=== PATIENT | male | born 1975 | race Caucasian/White ===

== ENCOUNTER 2017-11-19 01:21 | Emergency (ER) | payer BC ==
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
[2017-11-19] MEDS ORDERED: HYDROMORPHONE HCL INJ/PF 2 MG/ML AMPULE IM ONE (02:05)
[2017-11-19] MEDS ORDERED: PREDNISONE 20 MG TABLET PO ONE (02:05)
[2017-11-19] MEDS ORDERED: KETOROLAC TROMETHAMINE 60 MG/2 ML SDV IM ONE (02:05)
--- NOTE | 2017-11-19 03:11 | RADIOLOGY REPORT (SQ) ---
EXAM DESCRIPTION: SHOULDER RIGHT 2 OR MORE VIEWS CLINICAL HISTORY: pain COMPARISON: None. FINDINGS: 3 views of the right shoulder. No acute fracture or dislocation. Normal osseous mineralization. No fracture of the visualized right ribs. No right-sided pneumothorax identified. IMPRESSION: 1. No acute fracture or dislocation.
--- NOTE | 2017-11-19 03:12 | RADIOLOGY REPORT (SQ) ---
EXAM DESCRIPTION: HUMERUS RIGHT CLINICAL HISTORY: pain COMPARISON: None. FINDINGS: 2 views of the right humerus. No acute fracture or dislocation. Normal osseous mineralization. IMPRESSION: 1. No acute fracture or dislocation.
[2017-11-19] MEDS ORDERED: DIAZEPAM 5 MG TABLET PO ONE (03:47)
[2017-11-19 04:17] VITALS: BP 167/100
== END 2017-11-19 04:17 | disposition home or self-care (01) ==
LOC: ER 01:21
DX: M62.838 Other muscle spasm (principal); M54.12 Radiculopathy, cervical region; M79.601 Pain in right arm; M25.511 Pain in right shoulder; E11.9 Type 2 diabetes mellitus without complications; I10 Essential (primary) hypertension
CPT/HCPCS: 99283; 96372; 73060; 73030; J1885; J1170; J7512

== ENCOUNTER 2017-11-21 21:59 | Emergency (ER) | payer BC, OTHER ==
[2017-11-21 22:12] VITALS: BP 177/105
[2017-11-21] MEDS ORDERED: MORPHINE SULFATE IR 15 MG TABLET PO ONE (22:36)
[2017-11-21] MEDS ORDERED: KETOROLAC TROMETHAMINE INJ/PF 30 MG/1 ML SDV IM ONE (22:36)
--- NOTE | 2017-11-21 22:41 | ER Document Report ---
HPI - HPI Pain Level: 5 Notes: Patient is a 42-year-old male with a history of well-controlled type 2 diabetes , hypertension who presents to the ED complaining of continued neck pain that radiates down into his right arm. Patient states that he has pain and tingling that shoots down into his right arm. Patient was evaluated 2 days ago and was given Valium and [place]. Patient states that the medicines did not really help that well aside from the steroid medication. Patient states that he is not here looking for narcotics, but would like something to help with the inflammation swelling as Motrin has not been helping him. 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 Patient has a neurosurgical consult scheduled for December 03. Patient states that he has performed multiple warm showers today, ice throughout the day, TENS unit, and chiropractor visit without significant improvement. Patient states that he is up every hour and a half because of the intermittent pain that he has been having. Patient states that certain movements make his pain worse. Patient states that the pain has otherwise remained unchanged from his visit a couple days ago. Patient states that he does check his sugars regularly and they are very well controlled. Patient states that he has had steroids in the past without any difficulties with a sugar. No other concerns or complaints. Denies any surgeries or procedures to his back. Denies any smoking or IV drug use. Denies any previous history of spinal abscess or other immunocompromised medical conditions. Denies any headache, fever, head injury, URI, sore throat, chest pain, palpitations, syncope, cough, shortness of breath, wheeze, dyspnea, abdominal pain, nausea/ vomiting/diarrhea, urinary retention, dysuria, hematuria, loss of control of bowel or bladder, saddle anesthesia, or rash. - ROS Systems Reviewed and Negative: Yes All other systems reviewed and negative - REPRODUCTIVE Reproductive: DENIES: : Past Medical History - Social History Smoking Status: Never Smoker Family History: Reviewed & Not Pertinent Endocrine Medical History: Reports: Hx Diabetes Mellitus Type 2 Renal/ Medical History: Denies: Hx Peritoneal Dialysis Musculoskeltal Medical History: Reports Hx Arthritis, Reports Hx Musculoskeletal Deformity, Reports Hx Musculoskeletal Trauma Past Surgical History: Reports: Hx Orthopedic Surgery - x3 right ankle - Immunizations Hx Diphtheria, Pertussis, Tetanus Vaccination: Yes - unk Vertical Provider Document - CONSTITUTIONAL Agree With Documented VS: Yes Notes: PHYSICAL EXAMINATION: accompanied by female nurse GENERAL: Well-appearing, well-nourished and in no acute distress. A&Ox4. Answers questions appropriately. NECK: Normal range of motion, supple without lymphadenopathy. No rigidity. No midline tenderness. Spurling negative. + tenderness and mild spasm to the rt c- paraspinal mm & into the rt trap mm. LUNGS: Breath sounds clear to auscultation bilaterally and equal. No wheezes rales or rhonchi. HEART: Regular rate and rhythm without murmurs, rubs, gallops. Musculoskeletal: UE's b/l: No obvious atrophy of the RUE is noted. FROM to passive/active. Strength 5+/5. No deficits noted. No bony tenderness of extremities. N/V intact distal. Back: FROM to passive/active. Strength 5+/5. No vertebral point tenderness, stepoffs, or deformities. No other bony tenderness, erythema, swelling, or ecchymosis. No foot drop Extremities: No cyanosis, clubbing, or edema b/l. Peripheral pulses 2+. Capillary refill less than 2 seconds. NEUROLOGICAL: Normal speech, normal gait. Normal sensory, motor exams. Reflexes 2+ b/l. PSYCH: Normal mood, normal affect. SKIN: Warm, Dry, normal turgor, no rashes or lesions noted. - INFECTION CONTROL TRAVEL OUTSIDE OF THE [place] IN LAST 30 DAYS: No Course - Re-evaluation Re-evalutation: 11/21/17 22:41 Patient is an afebrile, well-hydrated, 42-year-old male who presents to the ED with cervicalgia and radiculitis to the right upper extremity. Vitals are acceptable. PE is otherwise unremarkable for any focal neurological deficits. No labs or imaging warranted at this time based on H&P. Patient had recent x- rays as well as MRI performed, and his symptoms have remained unchanged since his last visit. Reviewed the risk and benefit of steroid medication with the patient and that he could increase his blood glucose. Patient is aware of the risk and benefit and would like the medication at this time. Patient prefers the p.o. taper versus the injection. Toradol given IM and Lidoderm patch applied today. Low suspicion for any meningitis, fracture, expanding/ruptured AAA, cauda equina syndrome, epidural mass lesion/abscess, herniated disc causing severe spinal stenosis, or other systemic infection at this time. Patient is aware that his condition can change from initial presentation and that he needs monitor symptoms closely for any acute changes. I will be sending him home with a steroid taper. Conservative measures otherwise for symptoms. Recheck with your PCM in 3-5 days. Keep consult with a neurosurgeon. Return to the ED with any worsening/concerning symptoms otherwise as reviewed discharge. Patient is in agreement. - Vital Signs Vital signs: Temp Pulse Resp BP Pulse Ox 97.8 F 98 16 177/105 H 95 11/21/17 22:10 11/21/17 22:10 11/21/17 22:10 11/21/17 22:10 11/21/17 22:10 Discharge - Discharge Clinical Impression: Cervicalgia, Radiculitis Condition: Stable Disposition: HOME, SELF-CARE Instructions: Steroid Medication Additional Instructions: Rest, Ice Monitor blood glucose levels very closely as steroid medication will increase these numbers. Tylenol/ibuprofen as needed Light stretches daily Strength exercises as able Moist heat and massage may help F/u with your PCP in 3-5 days for a recheck Keep consult with neurosurgeon Consider consult(s) with Orthopedics/physical therapy for ongoing/worsening symptoms Return to the ED with any worsening symptoms and/or development of fever, headache, chest pain, palpitations, syncope, shortness of breath, trouble breathing, abdominal pain, n/v/d, blood in stool/urine, loss of control of bowel /bladder, urinary retention, muscle weakness/paralysis, saddle anesthesia, numbness/tingling, or other worsening symptoms that are concerning to you. Prescriptions: Diclofenac Sodium [Voltaren] 4 gm TP QID PRN #100 gel..gm. PRN Reason: Prednisone [Deltasone 20 mg Tablet] 1 tab PO ASDIR 5 Days #18 tablet Forms: Elevated Blood Pressure Referrals: [facility] [Provider Group] - Follow up as needed
[2017-11-21] MEDS ORDERED: LIDOCAINE 5% (700 MG) TRANSDERMAL ADH..PATCH TP ONE (22:43)
== END 2017-11-21 22:55 | disposition home or self-care (01) ==
LOC: ER 21:59
DX: M50.11 Cervical disc disorder with radiculopathy, high cervical region (principal); R20.2 Paresthesia of skin; E11.9 Type 2 diabetes mellitus without complications; I10 Essential (primary) hypertension
CPT/HCPCS: 99283; 96372; J1885

== ENCOUNTER 2018-04-17 08:57 | Day surgery (SDC) | payer OTHER ==
[2018-04-14 10:43] LABS: HEMATOCRIT 45.2 % (37.9-51.0); HEMOGLOBIN 15.8 g/dL (13.5-17.0); MEAN CORPUSCULAR HEMOGLOBIN 31.1 pg (27.0-33.4); MEAN CORPUSCULAR VOLUME 89 fl (80-97); PLATELET COUNT 276 10^3/uL (150-450); WHITE BLOOD COUNT 7.7 10^3/uL (4.0-10.5)
[2018-04-14 11:26] LABS: ANION GAP 16 (5-19); BLOOD UREA NITROGEN 12 mg/dL (7-20); CALCIUM 9.3 mg/dL (8.4-10.2); CARBON DIOXIDE 22 mmol/L (22-30); CHLORIDE 100 mmol/L (98-107); GLUCOSE 160 mg/dL (75-110); POTASSIUM 4.5 mmol/L (3.6-5.0); SODIUM 137.9 mmol/L (137-145)
--- NOTE | 2018-04-14 13:55 | EKG REPORT ---
SEVERITY:- NORMAL ECG - SINUS RHYTHM : Confirmed by: Kevin Lawton MD 14-Apr-2018 13:55:27
[~2018-04-17 08:57] MED LIST: CEFAZOLIN 2 GM/D5W RTU 2 GM/50 ML RTUPB IV PRN; LACTATED RINGERS 1000 ML IV PRN; LIDOCAINE 0.5% INJ-PF (5 MG/ML) 50 ML SDV SUBCUT PRN
[2018-04-17] MEDS ORDERED: FAMOTIDINE INJ/PF 20 MG/2 ML SDV IV ONE (09:05)
[2018-04-17] MEDS ORDERED: METOCLOPRAMIDE HCL INJ/PF 10 MG/2 ML SDV ONE (09:05)
[2018-04-17] MEDS ORDERED: NEOSTIGMINE METHYLSULFATE 10 MG/10 ML VIAL ONE (09:49)
[2018-04-17] MEDS ORDERED: ROCURONIUM BROMIDE INJ 50 MG/5 ML VIAL IV ONE (09:49)
[2018-04-17] MEDS ORDERED: KETOROLAC TROMETHAMINE 60 MG/2 ML SDV ONE (09:49)
[2018-04-17] MEDS ORDERED: PHENYLEPHRINE HCL INJ/PF 10 MG/1 ML SDV ONE (09:49)
[2018-04-17] MEDS ORDERED: DEXAMETHASONE SOD PHOSPHATE INJ 4 MG/1 ML VIAL ONE (09:49)
[2018-04-17] MEDS ORDERED: ONDANSETRON HCL INJ/PF 4 MG/2 ML SDV ONE (09:49)
[2018-04-17] MEDS ORDERED: GLYCOPYRROLATE 1 MG/5 ML SYRINGE ONE (09:49)
[2018-04-17] MEDS ORDERED: LIDOCAINE 2% INJ-PF (20 MG/ML) 10 ML AMPUL ONE (10:08)
[2018-04-17] MEDS ORDERED: ACETAMINOPHEN 1,000 MG/100 ML RTUPB IV ONE (10:09)
[2018-04-17] MEDS ORDERED: FENTANYL CITRATE INJ/PF 250 MCG/5 ML AMPULE ONE (10:09)
[2018-04-17] MEDS ORDERED: FENTANYL CITRATE INJ/PF 100 MCG/2 ML AMPUL ONE (10:09)
[2018-04-17] MEDS ORDERED: MIDAZOLAM 2 MG/2 ML INJ ONE (10:09)
[2018-04-17] MEDS ORDERED: PROPOFOL INJ 200 MG/20 ML VIAL IV ONE (10:09)
[2018-04-17] MEDS ORDERED: BUPIVACAINE HCL 0.5 % INJ/PF 30 ML SDV ONE (10:47)
[2018-04-17] MEDS ORDERED: MORPHINE SULFATE 10 MG/ML INJ IV PRN (11:06)
[2018-04-17] MEDS ORDERED: DIPHENHYDRAMINE HCL 50 MG/ML VIAL IV PRN (11:06)
[2018-04-17] MEDS ORDERED: PROMETHAZINE HCL INJ 25 MG/1 ML VIAL IV PRN ×2 (11:06)
[2018-04-17] MEDS ORDERED: FENTANYL CITRATE INJ/PF 100 MCG/2 ML AMPUL IV PRN ×3 (11:06)
[2018-04-17] MEDS ORDERED: MEPERIDINE HCL/PF INJ 25 MG/1 ML DISP.SYRIN IV PRN (11:06)
[2018-04-17] MEDS: FENTANYL CITRATE INJ/PF 100 MCG/2 ML AMPUL ONE ×2 (12:56→13:01)
[2018-04-17] MEDS ORDERED: HYDROCODONE/ACETAMINOPHEN 10-325 MG TABLET PO PRN (13:20)
--- NOTE | 2018-04-17 13:22 | Discharge Summary ---
Discharge Summary (SDC) - Discharge Final Diagnosis: Recurrent umbilical hernia Date of Surgery: 04/17/18 Discharge Date: 04/17/18 Condition: Stable Treatment or Instructions: Discharge home. Diet as tolerated. Activity: No lifting greater than 10 pounds x 6 weeks. Follow-up with me in 7-10 days. [place] 10/325 mg p.o. every 6 hours as needed pain. Okay to shower on Friday, wash incisions with soap and water.. No tub baths or swimming times 2 weeks. Referrals: CODY ESTRADA MD [Primary Care Provider] - Discharge Diet: As Tolerated Respiratory Treatments at Home: Deep Breathing/Coughing, Incentive Spirometer Discharge Activity: No Lifting Over 10 Pounds Home Care Assistance: None Needed Report the Following to Your Physician Immediately: Shortness of Breath, Nausea , Vomiting, Fever over 101 Degrees, Unusual Bleeding, Redness, Swelling, Warmth
--- NOTE | 2018-04-17 14:09 | Operative Report ---
Nonrecallable Operative Report DATE OF SURGERY: 04/17/18 PREOPERATIVE DIAGNOSIS: Recurrent umbilical hernia POSTOPERATIVE DIAGNOSIS: Same as above OPERATION: Robot-assisted laparoscopic recurrent umbilical hernia repair with mesh. SURGEON: ESTELA DOUGLASS ANESTHESIA: GA TISSUE REMOVED OR ALTERED: Old umbilical hernia mesh COMPLICATIONS: None apparent ESTIMATED BLOOD LOSS: Minimal PROCEDURE: Drains/implants: 10 x [address] hernia mesh. Procedure in detail: After informed consent was obtained, the patient was brought into the operating room and laid in the supine position. The area of the abdomen was prepped and draped in a normal sterile fashion. A 15 blade scalpel was used to create a left upper quadrant incision. The abdomen was then entered using a 5 mm camera, 5 mm trocar, and the Optiview technique. Once the trocar was within the abdominal cavity, gas insufflation was attached, and pneumoperitoneum was achieved. An 8 mm left lower quadrant trocar was then placed under direct laparoscopic visualization. A left lateral 12 mm trocar was also placed under direct laparoscopic visualization. The left upper quadrant 5 mm trocar was replaced with an 8 mm robotic trocar. The robot was then brought over the patient and docked appropriately. I then assumed my position at the surgeon's console. Attention was turned to the umbilical hernia defect. There was a large amount of omentum densely adherent and incarcerated within the hernia. The omentum was reduced and cleaned away from the anterior abdominal wall. The previous hernia mesh was identified. The defect appeared to involve the superior aspect of the previous hernia mesh. The old hernia mesh was then removed from the anterior abdominal wall. This was done with sharp dissection and Bovie electrocautery. Once the mesh was freed from the anterior abdominal wall, number 1 V lock suture was used to close the umbilical hernia defect. This was done in simple running fashion with 2 separate sutures. Once this was completed a 10 x [address] hernia mesh was inserted into the abdominal cavity. It was apposed to the anterior abdominal wall using the EPS. The mesh was then sutured to the anterior abdominal wall using 2-0 V lock suture in simple running fashion. The repair was then inspected. It was found to be in good order. The robot was then undocked, and I scrubbed back into the case. The 8 mm trochar sites were closed using 0 Vicryl suture in simple interrupted fashion with the assistance of the Endo Close device. The 8 and 12 mm trocars were removed, and pneumoperitoneum was relieved. The fascia of the 12 mm trocar site was closed using 0 Vicryl suture in [id number] fashion under direct vision. The overlying skin was closed using 4-0 Vicryl Rapide suture in subcuticular fashion. All sponge, instrument, and needle counts were correct 2. Condition: Stable.
[2018-04-17] MEDS ORDERED: HYDROMORPHONE HCL INJ/PF 2 MG/ML AMPULE ONE (14:49)
[2018-04-17 15:45] VITALS: BP 145/88
== END 2018-04-17 15:47 | disposition home or self-care (01) ==
LOC: OROUT 08:57
PROVIDERS: ATTEND Surgery
DX: K42.0 Umbilical hernia with obstruction, without gangrene (principal); E11.9 Type 2 diabetes mellitus without complications; M51.26 Other intervertebral disc displacement, lumbar region; M25.50 Pain in unspecified joint; Z02.89 Encounter for other administrative examinations; Z87.891 Personal history of nicotine dependence; Z79.4 Long term (current) use of insulin; Z79.891 Long term (current) use of opiate analgesic
CPT/HCPCS: 49653; S2900; 36415; 752; 80048; 82962; 85027; 86850; 86900; 86901; 93005; 93010; C1781; J0131; J0690; J1100; J1170; J1885; J2250; J2370; J2405; J2704; J2765; J3010; J3490; S0028